=== PATIENT | female | born 1980 | race Hispanic/Latino ===

== ENCOUNTER 2017-03-20 01:45 | Emergency (ER) | payer MEDICARE, MEDICAID ==
[2017-03-20 01:45] VITALS: BMI 18.9
[2017-03-20] MEDS ORDERED: HYDROmorphone 1 mg/ml ISec SC STA (03:04)
--- NOTE | 2017-03-20 03:04 | ED PDOC ---
Arrival/HPI - General Chief Complaint: Lower Extremity Problem/Injury Time Seen by Provider: 03/20/17 02:37 Historian: Patient - History of Present Illness Narrative History of Present Illness (Text): 03/20/17 03:03 Mere Bradshaw is a 36 year old female, whose past medical history includes Crohn' s disease, Lyme disease, and arthritis, who presents to the emergency department complaining of chronic bilateral knee pain for the past few weeks. Patient denies any relief with Percocet or Aleve and notes she is scheduled to see her borough coordinator on 03/21/2017 but pain has worsened. Patient denies any calf pain, chest pain, shortness of breath, abdominal pain, nausea, vomiting, neck pain, headache, dizziness, or any other complaints. Time/Duration: < month Symptom Onset: Gradual Symptom Course: Unchanged Activities at Onset: Rest, Light Context: Home Past Medical History - Provider Review Nursing Documentation Reviewed: Yes - Past History Past History: No Previous - Infectious Disease Hx of Infectious Diseases: None - Tetanus Immunization Tetanus Immunization: Unknown - Cardiac Hx Cardiac Disorders: No - Pulmonary Hx Respiratory Disorders: No - Neurological Hx Neurological Disorder: No - HEENT Hx HEENT Disorder: No - Renal Hx Renal Disorder: No - Endocrine/Metabolic Hx Endocrine Disorders: No - Hematological/Oncological Other/Comment: MRSA ( under armpit/foot/left butt cheek, nail bed). Lymes disease ( 2000) - Integumentary Hx Dermatological Disorder: No - Musculoskeletal/Rheumatological Hx Falls: No - Gastrointestinal Hx Gastrointestinal Disorders: Yes Hx Crohn's Disease: Yes - Genitourinary/Gynecological Hx Genitourinary Disorders: Yes Hx Urinary Tract Infection: Yes - Psychiatric Hx Depression: No Hx Emotional Abuse: No Hx Physical Abuse: No Hx Substance Use: No - Surgical History Hx Appendectomy: Yes - Anesthesia Hx Anesthesia: Yes Hx Anesthesia Reactions: No - Suicidal Assessment Feels Threatened In Home Enviroment: No Family/Social History - Physician Review Nursing Documentation Reviewed: Yes Family/Social History: Unknown Family HX Smoking Status: Never Smoked Hx Alcohol Use: No Hx Substance Use: No Hx Substance Use Treatment: No Allergies/Home Meds Allergies/Adverse Reactions: Allergies Sulfa (Sulfonamide Antibiotics) Allergy (Verified 06/02/16 18:32) RASH Home Medications: Home Meds Medication Instructions Recorded Confirmed Tramadol HCl [Ultram] 50 mg PO PRN PRN 12/26/13 06/02/16 Fentanyl [Duragesic Patch] 1 each TD Q3 06/02/16 06/02/16 Review of Systems - Physician Review All systems were reviewed & negative as marked: Yes - Review of Systems Constitutional: Normal. absent: Fevers Eyes: Normal ENT: Normal Respiratory: Normal. absent: SOB, Cough Cardiovascular: Normal. absent: Chest Pain Gastrointestinal: Abdominal Pain, Diarrhea, Nausea, Vomiting Genitourinary Female: Normal. absent: Dysuria, Frequency, Hematuria, Urine Output Changes Musculoskeletal: Normal. absent: Back Pain, Neck Pain Skin: Normal. absent: Rash Neurological: Normal. absent: Headache, Dizziness Endocrine: Normal Hemo/Lymphatic: Normal Psychiatric: Normal Physical Exam Vital Signs Reviewed: Yes Vital Signs Temp Pulse Resp BP Pulse Ox 03/20/17 04:56 98.6 F 70 18 120/71 100 03/20/17 03:45 74 18 120/69 100 03/20/17 01:45 98.6 F 75 18 121/71 100 Temperature: Afebrile Blood Pressure: Normal Pulse: Regular Respiratory Rate: Normal Appearance: Positive for: Well-Appearing, Non-Toxic, Comfortable Pain Distress: None Mental Status: Positive for: Alert and Oriented X 3 - Systems Exam Head: Present: Atraumatic, Normocephalic Pupils: Present: PERRL Extroacular Muscles: Present: EOMI Conjunctiva: Present: Normal Mouth: Present: Dry Neck: Present: Normal Range of Motion Respiratory/Chest: Present: Clear to Auscultation, Good Air Exchange. No: Respiratory Distress, Accessory Muscle Use Cardiovascular: Present: Regular Rate and Rhythm, Normal S1, S2. No: Murmurs Abdomen: Present: Normal Bowel Sounds. No: Tenderness, Distention, Peritoneal Signs Back: Present: Normal Inspection. No: Paraspinal Tenderness Upper Extremity: Present: Normal Inspection. No: Cyanosis, Edema Lower Extremity: Present: Normal Inspection, Normal ROM, Neurovascularly Intact. No: Edema, Jorge's Sign, Tenderness, Swelling, Erythema Neurological: Present: GCS=15, CN II-XII Intact, Speech Normal, Motor Func Grossly Intact, Normal Sensory Function Skin: Present: Warm, Dry, Normal Color. No: Rashes Psychiatric: Present: Alert, Oriented x 3, Normal Insight, Normal Concentration Medical Decision Making ED Course and Treatment: 03/20/17 03:04 Impression: 36 year old female presents for chronic knee pain. Plan: -- Toradol -- Dilaudid -- Reassess and disposition Progress Notes: 03/20/17 04:45 On reevaluation the patient feels better and is in no acute distress. I have discussed the results and plan with the patient, who expresses understanding. Patient given the opportunity to ask question, all questions were answered and there is agreement with the plan to discharge the patient home. Patient is stable for discharge. Patient was instructed to follow up with physician/clinic in 1-2 days or return if symptoms persist/worsen or new concerning symptoms arise. - Medication Orders Current Medication Orders: Discontinued Medications Hydromorphone HCl (Dilaudid) 1 mg SC STAT STA Stop: 03/20/17 03:05 Last Admin: 03/20/17 03:19 Dose: 1 mg Ketorolac Tromethamine (Toradol) 60 mg IM ONCE ONE Stop: 03/20/17 03:05 Last Admin: 03/20/17 03:18 Dose: 60 mg - Scribe Statement Delmis Rosas All medical record entries made by the Scribe were at my direction and personally dictated by me. I have reviewed the chart and agree that the record accurately reflects my personal performance of the history, physical exam, medical decision making, and the department course for this patient. I have also personally directed, reviewed, and agree with the discharge instructions and disposition. Disposition/Present on Arrival - Present on Arrival Any Indicators Present on Arrival: No History of DVT/PE: No History of Uncontrolled Diabetes: No Urinary Catheter: No History of Decub. Ulcer: No History Surgical Site Infection Following: None - Disposition Have Diagnosis and Disposition been Completed?: Yes Diagnosis: Knee pain, Osteoarthritis Disposition: HOME/ ROUTINE Disposition Time: 04:47 Patient Plan: Discharge Condition: GOOD Discharge Instructions (ExitCare): Knee Pain (ED) Additional Instructions: Take meds as prescribed/follow up with your borough coordinator this week as scheduled Prescriptions: Ketorolac Tromethamine [Toradol] 10 mg PO QID PRN #16 tab PRN Reason: Pain, Moderate (4-7) Referrals: Gale Agee MD [Primary Care Provider] - Follow up with primary
[2017-03-20 04:43] VITALS: RESP 18; TEMP 98.6; O2SAT 100
[2017-03-20 05:07] VITALS: BP 120/71; PULSE 70
== END 2017-03-20 05:06 | disposition home or self-care (01) ==
LOC: ED 01:45
DX: M17.0 Bilateral primary osteoarthritis of knee (principal); M25.561 Pain in right knee; M25.562 Pain in left knee
CPT/HCPCS: 96372; 99284; J1170; J1885

== ENCOUNTER 2017-03-22 00:03 | Emergency (ER) | payer MEDICARE, MEDICAID ==
[2017-03-22 00:47] VITALS: RESP 16; TEMP 99.2
[2017-03-22] MEDS ORDERED: HYDROmorphone 1 mg/ml ISec SC STA ×2 (00:59→03:11)
--- NOTE | 2017-03-22 01:00 | ED PDOC ---
Arrival/HPI - General Time Seen by Provider: 03/22/17 00:49 Historian: Patient - History of Present Illness Narrative History of Present Illness (Text): 03/22/17 00:56 Mere Bradshaw is a 36 year old female, with a history of Crohn's disease, Lyme disease, and arthritis, presents to the emergency department complaining of chronic bilateral knee pain for past few weeks. Patient was seen at [facility] for similar symptoms yesterday. Patient has had previous workup performed by her evs tech was evaluated by evs tech today and was administered a steroid injection to the knee. States that the pain is still present. Patient has an MRI of knees done, and has an appointment with orthopedist later this week after being told that nothing more could be offered by her evs tech. Denies any calf pain, chest pain, shortness of breath, nausea, vomiting, diarrhea, urinary symptoms, or any other complaints at this time. Time/Duration: > week Severity Level: Mild Activities at Onset: Light Past Medical History - Provider Review Nursing Documentation Reviewed: Yes - Past History Past History: No Previous - Infectious Disease Hx of Infectious Diseases: None - Tetanus Immunization Tetanus Immunization: Unknown - Cardiac Hx Cardiac Disorders: No - Pulmonary Hx Respiratory Disorders: No - Neurological Hx Neurological Disorder: No - HEENT Hx HEENT Disorder: No - Renal Hx Renal Disorder: No - Endocrine/Metabolic Hx Endocrine Disorders: No - Hematological/Oncological Other/Comment: MRSA ( under armpit/foot/left butt cheek, nail bed). Lymes disease ( 2000) - Integumentary Hx Dermatological Disorder: No - Musculoskeletal/Rheumatological Hx Falls: No - Gastrointestinal Hx Gastrointestinal Disorders: Yes Hx Crohn's Disease: Yes - Genitourinary/Gynecological Hx Genitourinary Disorders: Yes Hx Urinary Tract Infection: Yes - Psychiatric Hx Depression: No Hx Emotional Abuse: No Hx Physical Abuse: No Hx Substance Use: No - Surgical History Hx Appendectomy: Yes - Anesthesia Hx Anesthesia: Yes Hx Anesthesia Reactions: No - Suicidal Assessment Feels Threatened In Home Enviroment: No Family/Social History - Physician Review Nursing Documentation Reviewed: Yes Family/Social History: No Known Family HX Smoking Status: Never Smoked Hx Alcohol Use: No Hx Substance Use: No Hx Substance Use Treatment: No Allergies/Home Meds Allergies/Adverse Reactions: Allergies Sulfa (Sulfonamide Antibiotics) Allergy (Verified 03/22/17 00:47) RASH Home Medications: Home Meds Medication Instructions Recorded Confirmed Fentanyl [Duragesic Patch] 1 each TD Q3 06/02/16 03/22/17 Review of Systems - Physician Review All systems were reviewed & negative as marked: Yes - Review of Systems Constitutional: Normal. absent: Fatigue, Fevers Respiratory: Normal. absent: SOB, Cough, Sputum Cardiovascular: Normal. absent: Chest Pain, Palpitations Gastrointestinal: Normal. absent: Abdominal Pain, Diarrhea, Nausea, Vomiting Musculoskeletal: Other (b/l knee pain ) Skin: Normal. absent: Rash Neurological: absent: Headache, Dizziness Psychiatric: Normal Physical Exam Vital Signs Reviewed: Yes Vital Signs Temp Pulse Resp BP Pulse Ox 03/22/17 03:25 76 16 107/64 98 03/22/17 00:55 99.2 F 80 16 131/82 99 03/22/17 00:46 99.2 F 82 16 131/82 98 Temperature: Afebrile Blood Pressure: Normal Pulse: Regular Respiratory Rate: Normal Appearance: Positive for: Well-Appearing, Non-Toxic, Comfortable Pain Distress: None Mental Status: Positive for: Alert and Oriented X 3 - Systems Exam Head: Present: Atraumatic, Normocephalic Pupils: Present: PERRL Conjunctiva: Present: Normal Mouth: Present: Moist Mucous Membranes Respiratory/Chest: Present: Clear to Auscultation, Good Air Exchange. No: Respiratory Distress, Accessory Muscle Use Cardiovascular: Present: Regular Rate and Rhythm, Normal S1, S2. No: Murmurs Abdomen: Present: Normal Bowel Sounds. No: Tenderness, Distention, Peritoneal Signs Upper Extremity: Present: Normal Inspection. No: Cyanosis, Edema Lower Extremity: Present: Normal Inspection, NORMAL PULSES, Normal ROM, Neurovascularly Intact, Capillary Refill < 2 s. No: Edema, CALF TENDERNESS, Cyanosis, Tenderness, Swelling, Erythema, Deformity, Temperature Abnormalties Neurological: Present: GCS=15, CN II-XII Intact, Speech Normal, Motor Func Grossly Intact, Normal Sensory Function Skin: Present: Warm, Dry, Normal Color. No: Rashes Psychiatric: Present: Alert, Oriented x 3, Normal Insight, Normal Concentration Medical Decision Making ED Course and Treatment: 03/22/17 01:02 Impression: A 36 y/o female who presents to the ed complaining of b/l knee pain for past few weeks. Pt evaluated by evs tech earlier yesterday and was given a steroid injection. States pain not improved. Plan: -- Dilaudid Progress Notes: 03/22/17 03:33 Patient states pain has improved post treatment. Advised to follow up with orthopedist within few days and present to ed for new/worsening symptoms. - Medication Orders Current Medication Orders: Discontinued Medications Hydromorphone HCl (Dilaudid) 1 mg SC STAT STA Stop: 03/22/17 01:00 Last Admin: 03/22/17 01:14 Dose: 1 mg Hydromorphone HCl (Dilaudid) 1 mg SC STAT STA Stop: 03/22/17 03:12 Last Admin: 03/22/17 03:22 Dose: 1 mg Ketorolac Tromethamine (Toradol) 60 mg IM ONCE ONE Stop: 03/22/17 01:54 Last Admin: 03/22/17 02:11 Dose: 60 mg - Scribe Statement Avtar Ray Provider Attestation: All medical record entries made by the Lukeibe were at my direction and personally dictated by me. I have reviewed the chart and agree that the record accurately reflects my personal performance of the history, physical exam, medical decision making, and the department course for this patient. I have also personally directed, reviewed, and agree with the discharge instructions and disposition. Disposition/Present on Arrival - Present on Arrival Any Indicators Present on Arrival: No History of DVT/PE: No History of Uncontrolled Diabetes: No Urinary Catheter: No History of Decub. Ulcer: No History Surgical Site Infection Following: None - Disposition Have Diagnosis and Disposition been Completed?: Yes Diagnosis: Bilateral chronic knee pain, Arthralgia Disposition: HOME/ ROUTINE Disposition Time: 03:32 Patient Plan: Discharge Patient Problems: Current Active Problems Problem Status Onset Arthralgia Acute Bilateral chronic knee pain Acute Condition: GOOD Additional Instructions: continue current meds/follow up with the orthopedist as scheduled Referrals: Gale Agee MD [Primary Care Provider] - Follow up with primary
[2017-03-22 03:40] VITALS: BP 106/68; PULSE 70; O2SAT 97
== END 2017-03-22 03:40 | disposition home or self-care (01) ==
LOC: ED 00:03
DX: M25.561 Pain in right knee (principal); M25.562 Pain in left knee; G89.29 Other chronic pain
CPT/HCPCS: 96372; 99283; 99284; J1170; J1885

== ENCOUNTER 2017-03-22 21:02 | Emergency (ER) | payer MEDICARE, MEDICAID ==
[2017-03-22 21:12] VITALS: BMI 20.2
[2017-03-22 21:16] VITALS: BP 138/86; PULSE 100; RESP 14; TEMP 98.6; O2SAT 100
[2017-03-22] MEDS ORDERED: HYDROmorphone 1 mg/ml ISec IM STA (21:52)
--- NOTE | 2017-03-22 21:55 | ED PDOC ---
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 States that she has had similar exacerbation of her b/l knee pain 7 years ago, where she had to seek treatments with a field crop farming supervisor and was treated with steroid injections, she states that she responded to the joint injections and since then has been pain free. States that 5 weeks ago her knees started hurting and she proceeded to f/u with her field crop farming supervisor, who recently gave her a steroid injection of the knee a few days ago and had an outpt MRI of the knees which only showed bursitis. States that she was evaluated by her field crop farming supervisor yesterday and was administered a steroid injection to the knee, was told that nothing more can be done for her and to seek and evaluation by an orthopedist. States she is here today because it is a holiday and could not see even her pmd today, states that she called her pmd several times with no answer. Of note, patient was seen at [facility] for similar symptoms at 3 AM today. Denies any fever, chills, other joint pain, calf pain, chest pain, shortness of breath, nausea, vomiting, diarrhea, urinary symptoms, or any other complaints at this time. PMD Dr. Agee Past Medical History - Provider Review Nursing Documentation Reviewed: Yes - Past History Past History: No Previous - Infectious Disease Hx of Infectious Diseases: None - Tetanus Immunization Tetanus Immunization: Unknown - Cardiac Hx Cardiac Disorders: No - Pulmonary Hx Respiratory Disorders: No - Neurological Hx Neurological Disorder: No - HEENT Hx HEENT Disorder: No - Renal Hx Renal Disorder: No - Endocrine/Metabolic Hx Endocrine Disorders: No - Hematological/Oncological Other/Comment: MRSA ( under armpit/foot/left butt cheek, nail bed). Lymes disease ( 2000) - Integumentary Hx Dermatological Disorder: No - Musculoskeletal/Rheumatological Hx Falls: No - Gastrointestinal Hx Gastrointestinal Disorders: Yes Hx Crohn's Disease: Yes - Genitourinary/Gynecological Hx Genitourinary Disorders: Yes Hx Urinary Tract Infection: Yes - Psychiatric Hx Depression: No Hx Emotional Abuse: No Hx Physical Abuse: No Hx Substance Use: No - Surgical History Hx Appendectomy: Yes - Anesthesia Hx Anesthesia: Yes Hx Anesthesia Reactions: No - Suicidal Assessment Feels Threatened In Home Enviroment: No Family/Social History - Physician Review Nursing Documentation Reviewed: Yes Family/Social History: No Known Family HX Smoking Status: Never Smoked Hx Alcohol Use: No Hx Substance Use: No Hx Substance Use Treatment: No Allergies/Home Meds Allergies/Adverse Reactions: Allergies Sulfa (Sulfonamide Antibiotics) Allergy (Verified 03/22/17 21:12) RASH Home Medications: Home Meds Medication Instructions Recorded Confirmed Fentanyl [Duragesic Patch] 1 each TD Q3 06/02/16 03/22/17 Review of Systems - Review of Systems Constitutional: Normal. absent: Fatigue, Weight Change, Fevers Respiratory: Normal. absent: SOB, Cough, Wheezing Cardiovascular: Normal. absent: Chest Pain, Palpitations, Edema Musculoskeletal: Normal, Arthralgias. absent: Back Pain, Neck Pain Skin: Normal. absent: Rash, Pruritis, Skin Lesions Physical Exam - Physical Exam Narrative Physical Exam (Text): 03/22/17 22:27 GENERAL APPEARANCE: Patient is awake, alert, oriented x 3, in moderate painful distress. SKIN: Warm, dry; (-) cyanosis. LOWER EXTREMITY: (+) tenderness of b/l knees with no effusion. (-) Erythema, (- ) edema. Able to extend actively to 0 degrees; (-) instability on valgus or varus stress. Drawer sign (-). (-) distal neurovascular deficit. 2 point discrimination. Hip, thigh, leg and ankle: (-) tenderness or limitation of motion. 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 Plan: - toradol IM - dilaudid IM - prednisone PO - re-evaluation Patient was observed ambulating in the ER slowly with a steady gait. Patient reports improvement of pain. Referral to Dr. Hollingsworth, orthopedist is provided to the patient. Case d/w Dr. Hollingsworth, will f/u with the pt in his office. Patient advised to follow- up with orthopedic referral provided tomorrow without fail. Rx for medrol dose pack given to the pt, advised to continue NSAIDs. - Medication Orders Current Medication Orders: Discontinued Medications Hydromorphone HCl (Dilaudid) 1 mg IM STAT STA Stop: 03/22/17 21:53 Last Admin: 03/22/17 22:10 Dose: 1 mg Ketorolac Tromethamine (Toradol) 60 mg IM STAT STA Stop: 03/22/17 21:53 Last Admin: 03/22/17 22:11 Dose: 60 mg Prednisone (Prednisone Tab) 40 mg PO STAT STA Stop: 03/22/17 21:53 Last Admin: 03/22/17 22:11 Dose: 40 mg - PA / FRONT DESK HOST / Resident Statement MD/DO has reviewed & agrees with the documentation as recorded. Disposition/Present on Arrival - Present on Arrival Any Indicators Present on Arrival: No History of DVT/PE: No History of Uncontrolled Diabetes: No Urinary Catheter: No History of Decub. Ulcer: No History Surgical Site Infection Following: None - Disposition Have Diagnosis and Disposition been Completed?: Yes Diagnosis: Bilateral chronic knee pain Disposition: HOME/ ROUTINE Disposition Time: 21:53 Patient Plan: Discharge Condition: STABLE Discharge Instructions (ExitCare): Knee Pain (ED) Print Language: ISRAELI Additional Instructions: Thank you for letting us take care of you today. You were treated for bilateral knee pain. The emergency medical care you received today was directed at your acute symptoms. Return to the Emergency Department if your symptoms worsen, do not improve, or if you have any other problems. Please contact your doctor in 2 days for re-evaluation and follow up / or call one of the physicians/clinics you have been referred to that are listed on the Patient Visit Information form that is included in your discharge packet. Bring any paperwork you were given at discharge with you along with any medications you are taking to your follow up visit. Our treatment cannot replace ongoing medical care by a primary care provider (PCP) outside of the emergency department. Thank you for allowing the [facility] team to be part of your care today. Prescriptions: Methylprednisolone [Medrol Dose Pack (21 tabs)] 4 mg PO DAILY #21 mg Referrals: Justin Jones DO [Staff Provider] - Follow up with primary
== END 2017-03-22 22:45 | disposition home or self-care (01) ==
LOC: ED 21:02
DX: M25.561 Pain in right knee (principal); M25.562 Pain in left knee; G89.29 Other chronic pain
CPT/HCPCS: 96372; 99283; J1170; J1885